=== PATIENT | female | born 1975 | race Caucasian/White ===

== ENCOUNTER 2017-01-03 14:32 | Inpatient (IN) | payer OTHER ==
[~2017-01-03 14:32] MED LIST: HYDR-971 PO
[2017-01-03 14:51] VITALS: BP 113/74
[2017-01-03] MEDS ORDERED: IOHEXOL 240 MG/ML 50ML VIAL. PO ONE (15:15)
[2017-01-03] MEDS ORDERED: IOHEXOL 300 MG/ML 75 ML VIAL. IV ONE (15:15)
[2017-01-03 15:22] LABS: BASO # 0.1 x10^3/uL (0.0-0.2); BASO % 1 % (0-3); EOS # 0.3 x10^3/uL (0.0-0.7); EOS % 3 % (0-3); HEMATOCRIT 35.9 % (36.0-47.0); HEMOGLOBIN 12.3 g/dL (12.0-15.5); LYMPH # 3.1 x10^3/uL (1.0-4.8); LYMPH % 29 % (24-48); MEAN CORPUSCULAR HEMOGLOBIN 35 pg (25-35); MEAN CORPUSCULAR HGB CONC 34 g/dL (31-37); MEAN CORPUSCULAR VOLUME 101 fL (79-100); MONO # 0.7 x10^3/uL (0.0-1.1); MONO % 6 % (0-9); NEUT # 6.6 x10^3uL (1.8-7.7); NEUT % 61 % (31-73); PLATELET COUNT 335 x10^3/uL (140-400); RED BLOOD COUNT 3.56 x10^6/uL (3.50-5.40); RED CELL DISTRIBUTION WIDTH 13.3 % (11.5-14.5); WHITE BLOOD COUNT 10.8 x10^3/uL (4.0-11.0)
[2017-01-03 15:32] LABS: ALBUMIN 4.1 g/dL (3.4-5.0); ALBUMIN/GLOBULIN RATIO 1.2 (1.0-1.7); CALCIUM 9.4 mg/dL (8.5-10.1); CREATININE 0.9 mg/dL (0.6-1.0); GFR 69.7; MAGNESIUM 1.9 mg/dL (1.8-2.4); POTASSIUM 4.2 mmol/L (3.5-5.1); TOTAL BILIRUBIN 0.3 mg/dL (0.2-1.0); TOTAL PROTEIN 7.6 g/dL (6.4-8.2)
[2017-01-03] MEDS: ONDANSETRON PF 4 MG/2 ML VIAL. IV PRN ×2 (16:09→19:40)
[2017-01-03] MEDS: fentaNYL PF 100 MCG/2 ML VIAL IV PRN ×2 (16:09→19:40)
[2017-01-03] MEDS ORDERED: PROMETHAZINE 25 MG in IV NORMAL SALINE 50ML 50 ML IV PRN (16:45)
--- NOTE | 2017-01-03 16:59 | RAD ---
Indication fever. PA and lateral views of the chest were obtained. No prior imaging of the chest is available. There is mild interstitial prominence which probably reflects a chronic process such as fibrosis. On the basis of this single examination inflammatory interstitial change is not entirely excluded. No consolidated pneumonia is seen. Significant pleural fluid is not present. There is no pneumothorax. The visualized bony structures appear grossly intact. IMPRESSION: No acute finding seen. No consolidated pneumonia. Slight interstitial prominence, likely chronic
[2017-01-03] MEDS: IV NORMAL SALINE 1,000ML 1,000 ML IV SCH ×2 (17:03→23:10)
[2017-01-03] MEDS ORDERED: fentaNYL PF 100 MCG/2 ML VIAL IV PRN (17:15)
--- NOTE | 2017-01-03 17:26 | RAD ---
Indication nausea with fever. Axial images to the abdomen and pelvis were obtained. Both oral and IV contrast were administered. 75 cc of Omnipaque 300 was administered intravenously. No prior imaging of the abdomen or pelvis is available. The lung bases are clear. The liver and spleen appear unremarkable. Clips are seen in the gallbladder fossa. The pancreas appears unremarkable. No adrenal or renal anomalies are seen. Acute finding in the abdomen is not apparent. There are slightly dilated loops of small bowel in the pelvis. This is nonspecific. A focal mass or definite inflammatory process in the pelvis is not seen. IMPRESSION: No definite acute finding seen in the abdomen or pelvis. Mild dilatation of small bowel loops in the right pelvis is nonspecific.: PQRS Compliance Statement: One or more of the following individualized dose reduction techniques were utilized for this examination: 1. Automated exposure control 2. Adjustment of the mA and/or kV according to patient size 3. Use of iterative reconstruction technique
[2017-01-03 19:39] VITALS: BP 114/73
[2017-01-04] MEDS: fentaNYL PF 100 MCG/2 ML VIAL IV PRN (00:10)
[2017-01-04 05:59] VITALS: BP 114/70
[2017-01-04] MEDS: IV NORMAL SALINE 1,000ML 1,000 ML IV SCH ×3 (06:09→20:49)
[2017-01-04 06:29] LABS: ALBUMIN 3.6 g/dL (3.4-5.0); ALBUMIN/GLOBULIN RATIO 1.1 (1.0-1.7); CALCIUM 8.9 mg/dL (8.5-10.1); CREATININE 0.7 mg/dL (0.6-1.0); GFR 93.2; POTASSIUM 4.5 mmol/L (3.5-5.1); TOTAL BILIRUBIN 0.4 mg/dL (0.2-1.0); TOTAL PROTEIN 6.8 g/dL (6.4-8.2)
[2017-01-04 06:47] LABS: BASO # 0.1 x10^3/uL (0.0-0.2); BASO % 1 % (0-3); EOS # 0.2 x10^3/uL (0.0-0.7); EOS % 3 % (0-3); HEMATOCRIT 35.1 % (36.0-47.0); LYMPH # 2.1 x10^3/uL (1.0-4.8); LYMPH % 26 % (24-48); MEAN CORPUSCULAR HEMOGLOBIN 34 pg (25-35); MEAN CORPUSCULAR HGB CONC 34 g/dL (31-37); MEAN CORPUSCULAR VOLUME 101 fL (79-100); MONO # 0.7 x10^3/uL (0.0-1.1); MONO % 8 % (0-9); NEUT # 5.1 x10^3uL (1.8-7.7); NEUT % 62 % (31-73); PLATELET COUNT 319 x10^3/uL (140-400); RED BLOOD COUNT 3.49 x10^6/uL (3.50-5.40); WHITE BLOOD COUNT 8.3 x10^3/uL (4.0-11.0)
[2017-01-04] MEDS ORDERED: ACETAMINOPHEN 500 MG TABLET PO PRN (08:45)
[2017-01-04 10:27] VITALS: BP 115/78
[2017-01-04] MEDS ORDERED: AA 3%/ELECTROLYTE-TPN SOLN/GLY 1,000 ML IV SCH (10:30)
[2017-01-04] MEDS: traMADol/APAP 37.5/325 1 TAB TABLET PO PRN ×2 (10:53→11:53)
[2017-01-04 12:07] LABS: BILIRUBIN,URINE NEG (NEG); CLARITY,URINE CLEAR; COLOR,URINE YELLOW; GLUCOSE,URINE NEG (NEG)
[2017-01-04 12:13] LABS: BACTERIA,URINE 0 /HPF (0-FEW); NITRITE,URINE NEG (NEG); RBC,URINE RARE /HPF (0-2); SQUAMOUS EPITHELIAL CELL,UR OCC /LPF; UROBILINOGEN,URINE 0.2 mg/dL (0.2 mg/dL); WBC,URINE RARE /HPF (0-4); YEAST,URINE PRESENT /HPF
[2017-01-04] MEDS: ONDANSETRON PF 4 MG/2 ML VIAL. IV PRN (13:32)
[2017-01-04 14:41] VITALS: BP 114/68
[2017-01-04] MEDS: SUCRALFATE 1 GM TABLET. PO SCH ×2 (17:29→20:46)
[2017-01-04] MEDS: PANTOPRAZOLE IV PUSH 40 MG VIAL. IVP SCH (17:29)
[2017-01-04 18:22] VITALS: BP 112/70
[2017-01-04 20:28] LABS: INFLUENZA A PATIENT NEGATIVE (NEGATIVE); INFLUENZA B PATIENT NEGATIVE (NEGATIVE)
--- NOTE | 2017-01-05 00:34 | PN ---
DATE: 01/04/2017 SUBJECTIVE: A 41-year-old female with history of ovarian cancer still feeling fairly ill, not feeling well at all. She has been states that extremely bad sore throat and very low-grade temperature of 99. OBJECTIVE: VITAL SIGNS: Blood pressure 120/70, respiratory rate 20, pulse 70, afebrile as indicated. HEENT: The patient's head was atraumatic, normocephalic. Eyes: PERRLA without jaundice. Mouth and throat were normal. NECK: Supple, without JVD, carotid bruits. No thyromegaly. There was some tenderness there. LUNGS: Diminished throughout, but clear. CARDIOVASCULAR: Regular sinus rhythm. ABDOMEN: The patient is still having quite a bit of nausea and vomiting having difficulty eating. She says she eats and things come right back up, otherwise the patient's abdomen is soft. There is diffuse tenderness in the epigastric and right upper quadrant areas CT scan was basically unremarkable. EXTREMITIES: No clubbing, cyanosis, nor edema. IMPRESSION: Nausea, vomiting, fatigue, anorexia, history of ovarian cancer, failure to thrive, cellulitis. PLAN: We will go ahead and do an abdominal ultrasound also started her on some procalamine for nutritional supplementation and Rocephin for this pharyngitis that she also has some coughing as well. So the patient apparently has been seen recently at apparently she had a CT scan there and she says that was negative for any signs of metastatic disease. She is still has a hoarse voice. We will continue to hydrate her, start her on the antibiotics ___ nutritional supplementation. SANDRA GAUTAM MD DR: JENNY/flor JOB#: [id number] / [id number]
[2017-01-05] MEDS: IV NORMAL SALINE 1,000ML 1,000 ML IV SCH ×2 (03:14→07:59)
[2017-01-05 06:16] VITALS: BP 129/86
[2017-01-05] MEDS ORDERED: PANTOPRAZOLE IV PUSH 40 MG VIAL. IVP SCH (07:30)
[2017-01-05] MEDS: SUCRALFATE 1 GM TABLET. PO SCH ×2 (07:56→12:50)
[2017-01-05] MEDS: PANTOPRAZOLE IV PUSH 40 MG VIAL. IVP SCH (07:56)
--- NOTE | 2017-01-05 08:17 | RAD ---
Indication: Nausea. The visualized pancreas, aorta and IVC are unremarkable. The liver is normal in size. No liver mass is detected. The gallbladder is surgically absent. No biliary ductal dilatation is seen. The spleen is normal in size. The kidneys are unremarkable. No calculi or hydronephrosis is identified. There is no ascites. Impression: Unremarkable abdominal ultrasound.
[2017-01-05] MEDS ORDERED: CEFP200T PO (13:45)
[2017-01-05] MEDS ORDERED: PANT40TA3 PO (13:45)
[2017-01-05] MEDS ORDERED: TRAM1TAB4 PO (13:45)
--- NOTE | 2017-01-05 23:52 | DS ---
DATE OF DISCHARGE: 01/05/2017 HOSPITAL COURSE: This is a 41-year-old female who is admitted with sepsis. She was markedly diaphoretic and weak when she first came in. She had extreme hoarseness and we are not quite sure what is causing that, although she did improve with IV antibiotic therapy. She had multiple infections of her skin on her chest wall, abdomen, which seems to have responded to the IV antibiotics. The patient is also having nausea and vomiting. She made good progress there with some Protonix and her abdominal ultrasound was unremarkable. She had a CT abdomen and pelvis, which showed some mild dilation of the small bowel loops nonspecific. Her chest x-ray of course showed slight interstitial prominence likely chronic, so all these need to be worked up probable ENT, Pulmonology and Gastroenterology; however, she continues to be monitored carefully and make further evaluation on her as indicated. She will be discharged home to follow up as an outpatient. She will be on a regular diet, decreased activity, encouraged to stop smoking and given Chantix along with some antibiotic. She will be discharged home for followup and return to clinic for followup as indicated. IMPRESSION: Sepsis, multiple cellulitis areas on her abdomen skin, nausea, vomiting, probable gastroesophageal reflux disease, hoarseness, infected right great toe, apparently ingrown toenail that she has worked on before and apparently it has been infected and will continue on DICTATION ENDS ABRUPTLY SANDRA GAUTAM MD DR: JENNY/flor JOB#: [id number] / [id number]
== END 2017-01-05 14:20 | disposition home or self-care (01) | DRG 872 ==
LOC: 1 SOUTH 14:32
PROVIDERS: ADMIT Family Medicine; ATTEND Family Medicine
DX: A41.9 Sepsis, unspecified organism (principal); L03.311 Cellulitis of abdominal wall; K21.9 Gastro-esophageal reflux disease without esophagitis; L60.0 Ingrowing nail; R63.0 Anorexia; J02.9 Acute pharyngitis, unspecified; R62.7 Adult failure to thrive; R49.0 Dysphonia; Z85.43 Personal history of malignant neoplasm of ovary
CPT/HCPCS: 36415; 71020; 74177; 76700; 80053; 81001; 82150; 82607; 83605; 83690; 83735; 85027; 87040; 87804; C9113; J0696; J2405; J2550; J3010; Q9966; Q9967; J7030

== ENCOUNTER 2017-06-03 16:04 | Emergency (ER) | payer OTHER ==
[~2017-06-03] VITALS: Ht 170.2 cm; Wt 52.6 kg
[~2017-06-03 16:04] MED LIST changes: +CEFP200T PO; +HYDR-2762 PO; +PANT40TA3 PO; +TRAM1TAB4 PO; +VANCOMYCIN IV
--- NOTE | 2017-06-03 16:28 | PHYS DOC ---
Past History Past Medical History: Kidney Stones, Other Additional Past Medical Histor: ovarian cancer Past Surgical History: Cholecystectomy, Hysterectomy, Tonsillectomy, Other Alcohol Use: Occasionally Drug Use: None Adult General Chief Complaint Chief Complaint: HEADACHE HPI HPI Patient is a 42 year old female who presents with nausea, vomiting, headache. She states is normal for her to get these headaches and she usually pushes fluids and does an anti-medic and it resolves however today if not resolving. She denies any fevers chills, neck pain or stiffness. She states these headaches usually come on roughly every 3-4 months it is located behind her eyes in a bandlike fashion and is constant ache. Review of Systems Review of Systems Constitutional: Denies fever or chills [] Eyes: Denies change in visual acuity, redness, or eye pain [] HENT: Denies nasal congestion or sore throat [] Respiratory: Denies cough or shortness of breath [] Cardiovascular: No additional information not addressed in HPI [] GI: Denies abdominal pain, nausea, vomiting, bloody stools or diarrhea [] : Denies dysuria or hematuria [] Musculoskeletal: Denies back pain or joint pain [] Integument: Denies rash or skin lesions [] Neurologic: Denies headache, focal weakness or sensory changes [] Endocrine: Denies polyuria or polydipsia [] Allergies Allergies Allergies Coded Allergies Type Severity Reaction Last Updated Verified NSAIDS (Non-Steroidal Anti-Inflamma Allergy Intermediate 01/04/17 Yes Physical Exam Physical Exam Constitutional: Well developed, well nourished, no acute distress, non-toxic appearance. [] HENT: Normocephalic, atraumatic, bilateral external ears normal, oropharynx moist, no oral exudates, nose normal. [] Eyes: PERRLA, EOMI, conjunctiva normal, no discharge. [] Neck: Normal range of motion, no tenderness, supple, no stridor. [] Cardiovascular:Heart rate regular rhythm, no murmur [] Lungs & Thorax: Bilateral breath sounds clear to auscultation [] Abdomen: Bowel sounds normal, soft, no tenderness, no masses, no pulsatile masses. [] Skin: Warm, dry, no erythema, no rash. [] Back: No tenderness, no CVA tenderness. [] Extremities: No tenderness, no cyanosis, no clubbing, ROM intact, no edema. [] Neurologic: Alert and oriented X 3, normal motor function, normal sensory function, no focal deficits noted. [] Psychologic: Affect normal, judgement normal, mood normal. [] EKG EKG [] Radiology/Procedures Radiology/Procedures [] Impressions: Migraine type headache Course & Med Decision Making Course & Med Decision Making Pertinent Labs and Imaging studies reviewed. (See chart for details) I assumed care of this patient from Dr. Min at shift change. Patient has received Phenergan and Benadryl, IV fluids are infusing this time. Patient states that she is feeling better at this point, less nauseous, with improvement of her pain. No further vomiting in the emergency room. Patient's urinalysis not reveal any acutely concerning findings, on reevaluation states that her symptoms are fully resolved, and states she is ready go home. I did again discuss with patient her history, she is currently being evaluated for sweet syndrome, history of a brain tumor, however she states that she is back to normal this time, this is consistent with typical headaches, and she does not desire any additional evaluation at this time. As stated, patient is a normal neurologic examination, and is symptom-free. After discussion at bedside , patient states that she will be able to follow-up with her doctor promptly for continued evaluation, and return to the ED for any concerning symptoms as discussed. She is ambulating without difficulty in the ED, vital signs remained within normal limits. She has tolerated by mouth fluids without issue. Prescription for Zofran written, patient to follow-up with her primary care provider as discussed, and to return to the ED if any new or concerning symptoms develop. Patient discharged home in stable condition with plan as above. Dragon Disclaimer Dragon Disclaimer This chart was dictated in whole or in part using Voice Recognition software in a busy, high-work load, and often noisy Emergency Department environment. It may contain unintended and wholly unrecognized errors or omissions. Departure: Impression: Primary Impression: Migraine headache Disposition: HOME, SELF-CARE Condition: STABLE Referrals: SANDRA GAUTAM MD (PCP) Scripts Ondansetron Hcl (ZOFRAN) 4 Mg Tablet 4 MG PO PRN Q8HRS Y for NAUSEA, #15 Prov: CLEMENCIA SCHULTE DO 06/03/17 Departure Departure: Impression: Primary Impression: Migraine headache Disposition: HOME, SELF-CARE Condition: STABLE Referrals: SANDRA GAUTAM MD (PCP) Scripts Ondansetron Hcl (ZOFRAN) 4 Mg Tablet 4 MG PO PRN Q8HRS Y for NAUSEA, #15 Prov: CLEMENCIA SCHULTE DO 06/03/17 Problem Qualifiers Primary Impression: Migraine headache Migraine type: unspecified Status migrainosus presence: without status migrainosus Intractability: not intractable Qualified Codes: G43.909 - Migraine, unspecified, not intractable, without status migrainosus GALE MIN MD Jun 03, 2017 16:28 CLEMENCIA SCHULTE DO Jun 03, 2017 22:45
[2017-06-03] MEDS ORDERED: diphenhydrAMINE 50 MG/ML VIAL IVP ONE (16:30)
[2017-06-03] MEDS ORDERED: IV NORMAL SALINE 1,000ML 1,000 ML IV ONE (16:30)
[2017-06-03] MEDS ORDERED: PROMETHAZINE 12.5 MG in IV NORMAL SALINE 50ML 50 ML IV PRN (16:30)
[2017-06-03] MEDS ORDERED: diphenhydrAMINE 50 MG/ML VIAL ONE (16:54)
[2017-06-03] MEDS ORDERED: PROMETHAZINE 25 MG/ML VIAL IV ONE (16:54)
[2017-06-03 17:27] VITALS: BP 107/54
[2017-06-03] MEDS ORDERED: ONDA4TAB7 PO (18:33)
[2017-06-03 18:50] LABS: BARBITURATES NEG (NEG); BENZODIAZEPINES NEG (NEG); CANNABINOIDS POS (NEG); CLARITY,URINE CLEAR; COCAINE NEG (NEG); COLOR,URINE YELLOW; METHADONE NEG (NEG); OPIATES NEG (NEG); PHENCYCLIDINE NEG (NEG)
[2017-06-03 18:51] LABS: AMPHETAMINE/METHAMPHETAMINE NEG (NEG); BACTERIA,URINE 0 /HPF (0-FEW); BILIRUBIN,URINE NEG (NEG); GLUCOSE,URINE NEG (NEG); NITRITE,URINE NEG (NEG); SQUAMOUS EPITHELIAL CELL,UR MANY /LPF; UROBILINOGEN,URINE 0.2 mg/dL (0.2 mg/dL); WBC,URINE OCC /HPF (0-4)
== END 2017-06-03 19:19 | disposition home or self-care (01) ==
LOC: ER 16:04
DX: G43.909 Migraine, unspecified, not intractable, without status migrainosus (principal); R11.2 Nausea with vomiting, unspecified; Z87.442 Personal history of urinary calculi; Z88.6 Allergy status to analgesic agent
CPT/HCPCS: 36415; 80307; 81001; 96365; 96375; 99285; J1200; J2550; G0479; J7030